=== PATIENT | female | born 2005 | race Two or more races ===

== ENCOUNTER 2023-12-21 23:21 | Emergency (ER) | payer MEDICAID ==
[~2023-12-21] VITALS: Ht 167.6 cm; Wt 87.0 kg
[2023-12-21 23:35] VITALS: BP 125/82; PULSE 100; RESP 18; O2SAT 96
== END 2023-12-22 02:24 | disposition left against medical advice (07) ==
LOC: ER 23:21
DX: H92.02 Otalgia, left ear (principal); Z53.21 Procedure and treatment not carried out due to patient leaving prior to being seen by health care provider